=== PATIENT | male | born 1970 | race Caucasian/White ===

== ENCOUNTER 2022-12-04 09:44 | Emergency (ER) | payer OTHER ==
[~2022-12-04] VITALS: Ht 188 cm; Wt 110.2 kg
--- NOTE | 2022-12-04 09:58 | NUR ---
CAME IN THE EMERGENCY DEPT C/O OF TINGLING AND NUMBESS ON SOME PARTS OF HIS RIGHT ARM AND FINGERS.
[2022-12-04] MEDS ORDERED: PRED50TA PO (10:00)
--- NOTE | 2022-12-04 10:01 | NUR ---
AT BEDSIDE FOR EVAL
--- NOTE | 2022-12-04 10:10 | NUR ---
Patient discharged to home in stable condition. Written and verbal after care instructions given. Patient verbalizes understanding of instruction.
[2022-12-04 10:11] VITALS: BP 164/100
== END 2022-12-04 10:12 | disposition home or self-care (01) ==
LOC: ER 09:52
DX: G62.9 Polyneuropathy, unspecified (principal); I10 Essential (primary) hypertension